=== PATIENT | male | born 1965 | race Two or more races ===

== ENCOUNTER 2016-11-25 05:20 | Day surgery (SDC) | payer OTHER ==
[2016-11-24 09:40] VITALS: BMI 28.4
[2016-11-25] VITALS (16 sets, daily range): BP systolic 117–184; BP diastolic 78–116; PULSE 58–72; RESP 9–21; Ht 162.6 cm; Wt 75.9 kg
[~2016-11-25] VITALS: Ht 162.6 cm; Wt 75.9 kg
[~2016-11-25 05:20] MED LIST: CEFAZOLIN 2 GM/50 ML (PMX) 50 ML IVPB ONE; SOD CHLORIDE 0.9% 1,000 ML IV SCH
[2016-11-25] MEDS ORDERED: ATROPINE 1 MG/10 ML SYRINGE IV PRN (06:30)
[2016-11-25] MEDS ORDERED: MIDAZOLAM 1 MG/ML 2 ML INJ IV PRN (06:30)
[2016-11-25] MEDS ORDERED: HYDROmorphONE (0.2 MG/ML) 10ML SYG IV PRN ×3 (06:30)
[2016-11-25] MEDS ORDERED: ONDANSETRON 4 MG INJ IV PRN (06:30)
[2016-11-25] MEDS ORDERED: DIPHENHYDRAMINE 50 MG INJ IV PRN (06:30)
[2016-11-25] MEDS ORDERED: LABETALOL HCL 20MG INJ IV PRN (06:30)
[2016-11-25] MEDS ORDERED: FENTAnyl 50 MCG/ML VIAL IV PRN ×2 (06:30)
[2016-11-25] MEDS ORDERED: morphine (1 MG/ML) 10ML SYRINGE IV PRN ×3 (06:30)
[2016-11-25] MEDS ORDERED: EPHEDrine SULFATE 50 MG/5 ML SYG IV PRN (06:30)
[2016-11-25] MEDS ORDERED: MEPERIDINE 25 MG INJ IV PRN (06:30)
[2016-11-25] MEDS ORDERED: OXYCODONE/ACETAMINOPHEN (5/325) TAB PO PRN ×2 (06:30)
[2016-11-25] MEDS ORDERED: hydrALAzine 20 MG INJ IV PRN (06:30)
[2016-11-25] MEDS ORDERED: ROCURONIUM 50 MG INJ ONE (06:31)
[2016-11-25] MEDS ORDERED: GLYCOPYRROLATE 0.4 MG INJ ONE (06:31)
[2016-11-25] MEDS ORDERED: FENTAnyl 50 MCG/ML VIAL ONE (06:31)
[2016-11-25] MEDS ORDERED: PROPOFOL 20 ML ONE (06:31)
[2016-11-25] MEDS ORDERED: NEOSTIGMINE 3 MG/3 ML SYRINGE ONE (06:31)
[2016-11-25] MEDS ORDERED: MIDAZOLAM 1 MG/ML 2 ML INJ ONE (06:31)
[2016-11-25] MEDS ORDERED: LIDOCAINE 2% (SDV) 5 ML INJ ONE (06:31)
[2016-11-25] MEDS ORDERED: ONDANSETRON 4 MG INJ ONE (06:32)
[2016-11-25] MEDS ORDERED: SUCCINYLCHOLINE CHLORIDE 100 MG/5 ML SYG IV ONE (06:32)
[2016-11-25] MEDS ORDERED: LISI20TA11 PO (06:36)
[2016-11-25] MEDS ORDERED: COLC0.6C PO (06:36)
[2016-11-25] MEDS ORDERED: NAPR500T8 PO (06:39)
[2016-11-25] MEDS ORDERED: ALLO300T2 PO (06:40)
[2016-11-25] MEDS ORDERED: ACET1TAB40 PO (06:42)
[2016-11-25] MEDS ORDERED: BUPIVACAINE 0.25% (MPF) 30 ML INJ ONE (06:45)
[2016-11-25] MEDS ORDERED: CEFAZOLIN 1 GM INJ ONE (07:00)
[2016-11-25] MEDS ORDERED: POLYMYXIN/BACITRACIN 1L IRRIG ONE (07:14)
[2016-11-25] MEDS ORDERED: LABETALOL HCL 20MG INJ ONE (07:52)
[2016-11-25] MEDS ORDERED: HYDROCODONE/APAP (5/325) TAB PO ONE (09:00)
--- NOTE | 2016-11-25 09:41 | OPR ---
DATE OF OPERATION: 11/25/2016 INDICATION: This is a 51-year-old male with a right inguinal hernia. The risks, alternatives, bene fits, and personnel were discussed with the patient. The patient expressed understanding and consen toro to the operation. PREOPERATIVE DIAGNOSIS: Right inguinal hernia. POSTOPERATIVE DIAGNOSIS: Right inguinal hernia. OPERATION: Open right inguinal hernia repair with medium sized Ultrapro hernia system mesh. SURGEON: Dakota Nation MD SPECIMEN: None. COMPLICATIONS: None. ANESTHESIA: General. DESCRIPTION OF PROCEDURE: The patient was taken to the OR and prepped and draped in the usual steri le fashion. A surgical timeout was performed. IV antibiotics were given. A right inguinal oblique incision was made with a 10 blade. Dissection cautery was carried down to the external oblique fas cielo, which was opened with a 15 blade. This incision was extended medial inferiorly and lateral sup eriorly with Metzenbaum scissors. The cord structures were identified and encircled with a Carmen drain. A direct hernia was identified and reduced. This was bolstered with the disk portion of the UltraPro hernia system mesh, which was secured in place with a running 0 Prolene from the pubic tube rcle along the shelving edge of the inguinal ligament, superiorly to the internal oblique, with inte rrupted 3-0 Vicryl. Onlay mesh was secured in a similar fashion with running 0 Prolene from the pub ic tubercle along the shelving edge of the inguinal ligament. Straps were created and reapproximate d with interrupted 0 Prolene to recreate the inguinal ring. Onlay mesh was secured to the internal oblique with interrupted 3-0 Vicryl. The external oblique fascia was closed with running 3-0 Vicryl . Bernadine's was closed with interrupted 3-0 Vicryl. The skin was closed with skin mitzi. Local a nesthesia was injected. Dry dressings were applied. Dictated By: DAKOTA KAY/TD Conf#: [id number] DID#: [id number]
== END 2016-11-25 12:15 | disposition home or self-care (01) ==
LOC: SDS 05:20
PROVIDERS: ATTEND Surgery
DX: K40.90 Unilateral inguinal hernia, without obstruction or gangrene, not specified as recurrent (principal); I10 Essential (primary) hypertension
CPT/HCPCS: 49505; C1781; J0330; J0360; J0690; J2250; J2270; J2405; J2710; J3010; Z7512; Z7610